=== PATIENT | female | born 1965 | race Caucasian/White ===

== ENCOUNTER 2024-08-14 16:03 | Emergency (ER) | payer OTHER ==
[~2024-08-14] VITALS: Ht 165.1 cm; Wt 62.1 kg
[2024-08-14 16:12] VITALS: BP 104/60
[2024-08-14 16:49] LABS: BASOPHILS # (AUTO) 0.1 X10'3 (0-0.2); BASOPHILS % (AUTO) 0.9 % (0-1); EOSINOPHILS # (AUTO) 0.1 X10'3 (0-0.9); EOSINOPHILS % (AUTO) 0.7 % (0-6); HEMATOCRIT 46.1 % (35.0-45.0); HEMOGLOBIN 15.5 g/dl (12.0-16.0); LYMPHOCYTES % (AUTO) 11.9 % (21-51); MEAN CORPUSCULAR HEMOGLOBIN 32.2 PG (27.0-31.0); MEAN CORPUSCULAR HGB CONC 33.7 g/dL (33.0-36.5); MEAN CORPUSCULAR VOLUME 95.7 FL (78-98); MEAN PLATELET VOLUME 7.9 FL (7.4-10.4); MONOCYTES # (AUTO) 1.5 X10'3 (0-0.9); MONOCYTES % (AUTO) 17.5 % (2-12); PLATELET COUNT 477 X10'3 (140-440); RED BLOOD COUNT 4.82 X10'6 (4.20-5.60); RED CELL DISTRIBUTION WIDTH 14.1 % (11.5-14.5); WHITE BLOOD COUNT 8.7 X10'3 (4.5-11.0)
[2024-08-14 17:04] LABS: ALANINE AMINOTRANSFERASE 46 U/L (12-78); ALBUMIN 3.7 G/DL (3.4-5.0); ALBUMIN/GLOBULIN RATIO 0.8 (1.1-1.5); ALKALINE PHOSPHATASE 40 IU/L (46-116); ANION GAP 7 (8-16); ASPARTATE AMINO TRANSFERASE 42 U/L (10-37); BILIRUBIN,TOTAL 0.6 MG/DL (0.1-1.0); BLOOD UREA NITROGEN 13 MG/DL (7-18); BUN/CREATININE RATIO 15.1 (10.0-20.0); CHLORIDE 99 MMOL/L (99-107); CREATININE 0.86 MG/DL (0.40-0.90); GLUCOSE 120 MG/DL (70-104); SODIUM 135 MMOL/L (135-145); TOTAL CARBON DIOXIDE 29.1 MMOL/L (24-32); TOTAL PROTEIN 8.3 G/DL (6.4-8.2); eCRCL 66 ML/MIN; eGFR 68 ML/MIN
[2024-08-14 17:13] LABS: PRO BRAIN NATRIURETIC PEPTIDE 175 PG/ML (0-125)
[2024-08-14] MEDS ORDERED: methylPREDNISolone sod succ 125mg/2ml vial IV ONE (17:35)
[2024-08-14] MEDS: ipratropium/albuterol 3ml nebule NEB ONE (18:41)
[2024-08-14 18:44] VITALS: PULSE 89; RESP 18; O2SAT 97
[2024-08-14 18:49] VITALS: PULSE 87; RESP 18; O2SAT 100
[2024-08-14] MEDS ORDERED: AZIT250T29 PO (19:11)
[2024-08-14] MEDS ORDERED: PRED10TA23 PO (19:11)
[2024-08-14 19:28] VITALS: TEMP 98.9
== END 2024-08-14 19:38 | disposition home or self-care (01) ==
LOC: ER 16:04
DX: J20.9 Acute bronchitis, unspecified (principal); I10 Essential (primary) hypertension; I25.2 Old myocardial infarction; E78.00 Pure hypercholesterolemia, unspecified; E11.9 Type 2 diabetes mellitus without complications; F17.210 Nicotine dependence, cigarettes, uncomplicated; Z88.0 Allergy status to penicillin; Z95.1 Presence of aortocoronary bypass graft
CPT/HCPCS: 36415; 71045; 80053; 83880; 84484; 85025; 87502; 87503; 93005; 94640; 94760; 99285

== ENCOUNTER 2024-12-29 21:36 | Emergency (ER) | payer MEDICAID, OTHER ==
[~2024-12-29] VITALS: Ht 165.1 cm; Wt 62.0 kg
[2024-12-29 21:39] VITALS: TEMP 98.1
--- NOTE | 2024-12-29 21:53 | ELECTROCARDIOGRAPH REPORT ---
[facility] Test Date: 2024-12-29 Test Time: 21:48:27 Pat Name: EMERSON WANGER Department: EMERGENCY ROOM Room: Gender: F Junior Programmer Analyst: : [id number] Requested By: YARELY TRUJILLO Order Number: [id number] Reading MD: Measurements Intervals [place] Rate: 91 P: 70 SD: 130 QRS: 38 QRSD: 106 T: -3 QT: 365 QTc: 450 Interpretive Statements Age not entered, assumed to be 52 years old for purpose of ECG interpretation Sinus rhythm RSR' in V1 or V2, right VCD or RVH Borderline T abnormalities, inferior leads Please click the below link to view image of tracing.
[2024-12-29 21:55] LABS: BASOPHILS # (AUTO) 0.1 X10'3 (0-0.2); EOSINOPHILS # (AUTO) 0.3 X10'3 (0-0.9); EOSINOPHILS % (AUTO) 3.7 % (0-6); HEMOGLOBIN 15.1 g/dl (12.0-16.0); LYMPHOCYTES # (AUTO) 2.5 X10'3 (1.1-4.8); MEAN CORPUSCULAR HEMOGLOBIN 32.3 PG (27.0-31.0); MEAN CORPUSCULAR HGB CONC 34.3 g/dL (33.0-36.5); MEAN CORPUSCULAR VOLUME 94.3 FL (78-98); MEAN PLATELET VOLUME 7.7 FL (7.4-10.4); MONOCYTES # (AUTO) 0.9 X10'3 (0-0.9); MONOCYTES % (AUTO) 10.5 % (2-12); NEUTROPHILS # (AUTO) 5.1 X10'3 (1.8-7.7); NEUTROPHILS % (AUTO) 56.8 % (42-75); PLATELET COUNT 521 X10'3 (140-440); RED BLOOD COUNT 4.66 X10'6 (4.20-5.60); RED CELL DISTRIBUTION WIDTH 13.9 % (11.5-14.5); WHITE BLOOD COUNT 8.9 X10'3 (4.5-11.0)
[2024-12-29 22:16] LABS: ALBUMIN 3.6 G/DL (3.4-5.0); ANION GAP 9 (8-16); BLOOD UREA NITROGEN 16 MG/DL (7-18); BUN/CREATININE RATIO 19.3 (10.0-20.0); CALCIUM 9.1 MG/DL (8.5-10.1); CHLORIDE 103 MMOL/L (99-107); CREATININE 0.83 MG/DL (0.40-0.90); GLUCOSE 137 MG/DL (70-104); POTASSIUM 3.5 MMOL/L (3.5-5.1); PRO BRAIN NATRIURETIC PEPTIDE < 30 PG/ML (0-125); SODIUM 141 MMOL/L (135-145); TOTAL CARBON DIOXIDE 29.2 MMOL/L (24-32); eCRCL 67 ML/MIN; eGFR 71 ML/MIN
--- NOTE | 2024-12-29 22:44 | RADIOLOGY REPORT ---
CHEST RADIOGRAPH REASON FOR EXAM: CP COMPARISON: DI CHEST,SINGLE VIEW on DOS: 08/14/24, DI CHEST,SINGLE VIEW on DOS: 04/10/23 TECHNIQUE: One view of the chest is provided FINDINGS: The cardiomediastinal silhouette is within normal limits for technique. There are midline s ternotomy wires. There is no focal airspace disease. There is no significant pleural effusion. No acu te bony abnormality is identified. IMPRESSION: No radiographic evidence of acute cardiopulmonary process.
--- NOTE | 2024-12-29 23:34 | Physician Documentation ---
History of Present Illness ~ Chief Complaint: Chest Wall Pain Stated Complaint: FALL Time Seen by MD: 23:20 Primary Medical Doctor: MEÑO, STATED HAD CABG IN NOVEMBER 2022 AT [place] Mode of Arrival: POV HPI Patient presents to the emergency room with three days of left-sided chest pain. She states three days ago she was cleaning a window on a ladder when she fell striking her left chest. Pain is exacerbated with palpation and deep respirations. She has concern because she has had previous heart attack with CABG a proximally three years ago. She does state she bumped her head however no loss of consciousness or vomiting. She is not on blood thinners Medication Reconciliation Allergies: Coded Allergies: Penicillins (Verified Allergy, Unknown, 04/10/23) codeine (Verified Allergy, Unknown, 12/29/24) Past Medical History Past Medical History: High Cholesterol, Hypertension, Myocardial Infarction, Di abetes Past Surgical History: coronary bypass surgery Lives with: Spouse Lives In: Home Review of Systems ROS All review of systems negative except as per HPI Physical Exam Vital Signs: Temperature: 98.1, Source: Oral, Heart Rate: 94, Respiratory Rate: 18, BP: 139/85, Pulse Oximetry: 100, Weight: 62.050 Oxygen Flow Rate: 0 General Appearance General: Patient is awake, alert, oriented x4 in no acute distress and well appearing.~ Head: Normocephalic and atraumatic. Eyes: Conjunctival normal. EOMI. PERRL. ENT: Mucous membranes moist. No santiago signs raccoon eyes hemotympanum or rhi norrhea Neck: Supple, trachea is midline. No cervical midline tenderness Chest: Clear to auscultation bilaterally without rales, rhonchi, or wheezes. There is no accessory muscle use or retractions. Tenderness to palpation to left chest wall Cardiac: RRR without murmurs, gallops, or rubs. Abd: Soft, nondistended, nontender, with normoactive bowel sounds. No guarding, rebound, or rigidity. Progress Results/Orders Results/Orders Orders - YARELY CLAROS MD Chest,Single View (12/29/24 21:56) Monitor (12/29/24 21:45) Saline Lock (12/29/24 21:45) Oxygen (12/29/24 21:45) Hs Troponin I W Calculations (12/29/24 23:45) Hs Troponin I W Calculations (12/30/24 00:45) Completed Orders - YARELY CLAROS MD Chest,Single View (12/29/24 21:56) Cbc/Diff (12/29/24 21:45) BMP (12/29/24 21:45) PBNP (12/29/24 21:45) Electrocardiogram (12/29/24 21:45) Hs Troponin I W Calculations (12/29/24 21:45) Vital Signs 12/29/24 12/29/24 12/29/24 21:39 22:09 22:11 Temp 98.1 Pulse 94 Resp 16 18 B/P (MAP) 139/85 Pulse Ox 97 100 O2 Delivery Room Air* O2 Flow Rate 0 0 FiO2 21 Laboratory Tests Test 12/29/24 21:48 White Blood Count 8.9 Red Blood Count 4.66 Hemoglobin 15.1 Hematocrit 44.0 Mean Corpuscular Volume 94.3 Mean Corpuscular Hemoglobin 32.3 H Mean Corpuscular Hemoglobin Concent 34.3 Red Cell Distribution Width 13.9 Platelet Count 521 H Mean Platelet Volume 7.7 Neutrophils (%) (Auto) 56.8 Lymphocytes (%) (Auto) 28.0 Monocytes (%) (Auto) 10.5 Eosinophils (%) (Auto) 3.7 Basophils (%) (Auto) 1.0 Neutrophils # (Auto) 5.1 Lymphocytes # (Auto) 2.5 Monocytes # (Auto) 0.9 Eosinophils # (Auto) 0.3 Basophils # (Auto) 0.1 CBC Comment Sodium Level 141 Potassium Level 3.5 Chloride Level 103 Carbon Dioxide Level 29.2 Anion Gap 9 Blood Urea Nitrogen 16 Creatinine 0.83 Estimated GFR/1.73 m2 71 BUN/Creatinine Ratio 19.3 Glucose Level 137 H Calcium Level 9.1 Troponin I High Sensitivity 4 Pro-B-Type Natriuretic Peptide < 30 Albumin 3.6 Chemistry Comments EKG/XRAY/CT/US/VASC/MRI EKG : Additional Comment EKG interpreted by myself shows time of 08/02/2047, rate 91, sinus rhythm, normal axis, no ST changes Chest X-Ray : Additional Comments Exam: CHEST,SINGLE VIEW CHEST RADIOGRAPH REASON FOR EXAM: CP COMPARISON: DI CHEST,SINGLE VIEW on DOS: 2/1/25, DI CHEST,SINGLE VIEW on DOS: 04/10/23 TECHNIQUE: One view of the chest is provided FINDINGS: The cardiomediastinal silhouette is within normal limits for technique. There are midline sternotomy wires. There is no focal airspace disease. There is no significant pleural effusion. No acute bony abnormality is identified. IMPRESSION: No radiographic evidence of acute cardiopulmonary process. Medical Decision Making Findings Patient presents to the emergency room with concerns of chest pain as per HPI. Differentials include but are not limited to musculoskeletal pain, ACS, pn eumothorax, pulmonary embolism. Given history and physical exam and believe patient is suffering from musculoskeletal pain. Chest x-ray is reassuring. No one-sided leg pain and he had not feel patient requires investigation into possible pulmonary embolism. Troponins negative and EKG is reassuring. He had not feel she requires CT scan of her head. Departure Disposition: HOME / SELF CARE / HOMELESS Impression: Primary Impression: Chest wall pain Condition: Stable Discharge Instructions: Chest Wall Pain Additional Instructions: Ibuprofen and Tylenol as discussed. Referrals: NO PRIMARY CARE PROVIDER (PCP) Education Educated: Patient Educated regarding: diagnosis, treatment, need for follow up Signature Scribe Signature: No scribe Attestation: The note accurately reflects work and decisions made by me.Yarely Claros MD 12/29/24 23:34 YARELY CLAROS MD Dec 29, 2024 23:34
[2024-12-29 23:35] VITALS: BP 148/95; PULSE 86; RESP 16; O2SAT 99
[2024-12-29] MEDS: acetaminophen 325mg tablet PO ONE (23:40)
[2024-12-29] MEDS: ketorolac trometh 15mg/ml vial 15 MG/ML ML IM ONE (23:40)
== END 2024-12-29 23:50 | disposition home or self-care (01) ==
LOC: ER 21:37
DX: R07.89 Other chest pain (principal); E11.9 Type 2 diabetes mellitus without complications; I10 Essential (primary) hypertension; E78.00 Pure hypercholesterolemia, unspecified; R06.02 Shortness of breath; I25.2 Old myocardial infarction; Z88.0 Allergy status to penicillin; Z88.5 Allergy status to narcotic agent; Z95.1 Presence of aortocoronary bypass graft
CPT/HCPCS: 36415; 71045; 80048; 83880; 84484; 85025; 93005; 96372; 99285; J1885